=== PATIENT | male | born 1990 ===

== ENCOUNTER 2021-07-01 22:03 | Emergency (ER) | payer SELFPAY ==
[~2021-07-01] VITALS: Ht 177.8 cm; Wt 76.0 kg
[2021-07-02 04:59] VITALS: BP 110/66
== END 2021-07-02 05:00 | disposition home or self-care (01) ==
LOC: EMS 22:06 → EDBD 22:06 → EMS 07-02 05:00
DX: F19.10 Other psychoactive substance abuse, uncomplicated (principal); R41.82 Altered mental status, unspecified; F17.210 Nicotine dependence, cigarettes, uncomplicated; F11.90 Opioid use, unspecified, uncomplicated
CPT/HCPCS: 99283; Z7502